=== PATIENT | female | born 1960 | race Caucasian/White ===

== ENCOUNTER 2024-05-03 10:38 | Emergency (ER) | payer MEDICARE, OTHER ==
[~2024-05-03] VITALS: Ht 165.1 cm; Wt 80.0 kg
[2024-05-03 10:49] VITALS: O2SAT 100
[2024-05-03] MEDS: ACETAMINOPHEN 325MG TABLET PO STA (11:08)
[2024-05-03] MEDS ORDERED: IBUP-2029 MT (11:53)
[2024-05-03 12:13] VITALS: BP 145/81; PULSE 70; RESP 16; TEMP 36.78072; O2SAT 100
== END 2024-05-03 12:13 | disposition home or self-care (01) ==
LOC: ER 11:22
DX: S00.83XA Contusion of other part of head, initial encounter (principal); I10 Essential (primary) hypertension; Z88.5 Allergy status to narcotic agent; W18.30XA Fall on same level, unspecified, initial encounter; Y93.89 Activity, other specified; Y92.89 Other specified places as the place of occurrence of the external cause; Y99.8 Other external cause status
CPT/HCPCS: 99284